=== PATIENT | male | born 1960 ===

== ENCOUNTER 2017-09-12 07:34 | Emergency (ER) | payer MEDICAID, OTHER ==
[2017-09-12 08:00] VITALS: RESP 20; TEMP 98.4
--- NOTE | 2017-09-12 08:07 | C.PDOC ---
History Of Present Illness 56 year old male presents to the ED c/o fever, productive cough for the past 5 days. Patient reports he has been taking Robitussin with no relief to the symptoms. Patient is also c/o generalized body aches. Patient denies SOB, CP, headache, nasal congestion, abdominal pain, nausea, vomit, diarrhea, sick contacts, recent travel. Chief Complaint (Nursing): Cough, Cold, Congestion History Per: Patient History/Exam Limitations: no limitations Onset/Duration Of Symptoms: Days Current Symptoms Are (Timing): Still Present Location Of Pain: Diffuse Myalgias Sick Contacts (Context): None Associated Symptoms: Fever, Cough, Sputum Ear Symptoms: Bilateral: None Severity: None Recent travel outside of the [place]: No Additional History Per: Patient Past Medical History Reviewed: Historical Data, Nursing Documentation, Vital Signs Vital Signs: Last Vital Signs Temp 98.4 F 09/12/17 07:47 Pulse 98 H 09/12/17 08:48 Resp 20 09/12/17 08:48 BP 138/85 09/12/17 08:48 Pulse Ox 98 09/12/17 08:48 - Medical History PMH: No Chronic Diseases Surgical History: No Surg Hx Family History: States: Unknown Family Hx - Social History Hx Tobacco Use: No Hx Alcohol Use: No Hx Substance Use: No - Immunization History Hx Tetanus Toxoid Vaccination: No Hx Influenza Vaccination: No Hx Pneumococcal Vaccination: No Review Of Systems Constitutional: Positive for: Fever. Negative for: Chills Cardiovascular: Positive for: Chest Pain Respiratory: Positive for: Cough, Sputum. Negative for: Shortness of Breath Gastrointestinal: Negative for: Nausea, Vomiting, Abdominal Pain Genitourinary: Negative for: Dysuria Musculoskeletal: Negative for: Neck Pain, Back Pain Skin: Negative for: Rash Neurological: Negative for: Weakness, Numbness, Headache Physical Exam - Physical Exam Appears: Non-toxic, No Acute Distress, Other (Afebrile) Skin: Normal Color, Warm, Dry Head: Atraumatic, Normacephalic Eye(s): bilateral: Normal Inspection Ear(s): Bilateral: Normal Nose: No Discharge, No Deformity Oral Mucosa: Moist Throat: Normal, No Erythema, No Exudate Neck: Normal ROM, Supple Chest: Symmetrical Cardiovascular: Rhythm Regular, No Murmur Respiratory: Rales (crackles right lower area), No Rhonchi, No Wheezing Gastrointestinal/Abdominal: Soft, No Tenderness Extremity: Normal ROM, No Pedal Edema, No Deformity, No Swelling Neurological/Psych: Oriented x3, Normal Speech, Normal Cognition Gait: Steady ED Course And Treatment O2 Sat by Pulse Oximetry: 96 (On RA) Pulse Ox Interpretation: Normal - Radiology CXR: Viewed By Me, Read By Radiologist CXR Interpretation: Yes: Other (No active disease.). No: No Acute Disease, Infiltrates - Other Rad CXR X-Ray: Viewed By Me, Read By Radiologist Interpretation: Accession No. : [id number]. Patient Name / ID : [id number] LANGFORD / [id number]. Exam Date : 09/12/2017 08:10:27 ( Approved ). Study Comment : Sex / Age : M / 56Y. Creator : Angela Hatfield. Dictator : Angela Hatfield. Risk Compliance Analyst : Core Cleaner : Angela Owens. Approver2 : Report Date : 09/12/2017 08:25:10. My Comment : . HISTORY: productive cough/fever. COMPARISON: 04/04/2014. TECHNIQUE: Chest PA and lateral. FINDINGS: LUNGS: No active pulmonary disease. PLEURA: No significant pleural effusion identified. No pneumothorax apparent. CARDIOVASCULAR: Normal. Prior prominence of the bronchovascular markings less pronounced now than before. OSSEOUS STRUCTURES: Minimal inferior thoracic spondylosis. VISUALIZED UPPER ABDOMEN: Normal. OTHER FINDINGS: None. IMPRESSION: No active disease. Progress Note: Plan: -CXR. -Tylenol 650 mg PO. -Zithromax 500 mg po. Upon discharge patient requsetd to be referred to the mental health clinic because of feeling depressed. Patient denies any suicidal/homicidal ideations. Disposition - Disposition Referrals: [facility] [Outside] [facility] [Outside] [facility] [Outside] Disposition: HOME/ ROUTINE Disposition Time: 08:38 Condition: STABLE Additional Instructions: Follow up in Clinic as instructed. Return to ED if feel worse. 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 - Scribe Statement The provider has reviewed the documentation as recorded by the Scribe Oscar So All medical record entries made by the Scribe were at my direction and personally dictated by me. I have reviewed the chart and agree that the record accurately reflects my personal performance of the history, physical exam, medical decision making, and the department course for this patient. I have also personally directed, reviewed, and agree with the discharge instructions and disposition.
--- NOTE | 2017-09-12 08:26 | RAD ---
HISTORY: productive cough/fever COMPARISON: 04/04/2014 TECHNIQUE: Chest PA and lateral FINDINGS: LUNGS: No active pulmonary disease. PLEURA: No significant pleural effusion identified. No pneumothorax apparent. CARDIOVASCULAR: Normal. Prior prominence of the bronchovascular markings less pronounced now than before OSSEOUS STRUCTURES: Minimal inferior thoracic spondylosis VISUALIZED UPPER ABDOMEN: Normal. OTHER FINDINGS: None. IMPRESSION: No active disease.
[2017-09-12 08:49] VITALS: BP 138/85; PULSE 98
[2017-09-12 09:51] VITALS: O2SAT 96
== END 2017-09-12 08:53 | disposition home or self-care (01) ==
LOC: C.ER 07:34
DX: J40 Bronchitis, not specified as acute or chronic (principal)